=== PATIENT | male | born 1995 | race American Indian/Alaskan Native ===

== ENCOUNTER 2018-07-12 16:22 | Emergency (ER) | payer OTHER ==
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
[2018-07-12 16:53] VITALS: BP 127/75
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
[2018-07-12] MEDS ORDERED: IBUPROFEN PO ONE (19:38)
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
== END 2018-07-12 20:04 | disposition home or self-care (01) ==
LOC: ED 16:22
DX: S39.012A Strain of muscle, fascia and tendon of lower back, initial encounter (principal); V89.2XXA Person injured in unspecified motor-vehicle accident, traffic, initial encounter; Y93.89 Activity, other specified; Y92.488 Other paved roadways as the place of occurrence of the external cause; Y99.8 Other external cause status
CPT/HCPCS: 72070; 72100; 99283